=== PATIENT | female | born 1980 | race African-American/Black ===

== ENCOUNTER 2024-07-04 16:09 | Emergency (ER) | payer MEDICAID ==
[~2024-07-04] VITALS: Ht 167.6 cm; Wt 76.7 kg
[2024-07-04 16:14] VITALS: O2SAT 100
== END 2024-07-04 17:22 | disposition left against medical advice (07) ==
LOC: ER 16:10
DX: R10.9 Unspecified abdominal pain (principal); Z53.21 Procedure and treatment not carried out due to patient leaving prior to being seen by health care provider
CPT/HCPCS: A4606; A4663